=== PATIENT | female | born 1980 | race Asian ===

== ENCOUNTER → 2017-06-13 | Outpatient (CLI) | payer OTHER ==
[~2017-06-13] MED LIST: ACET-1256 PO
[2017-06-13 17:54] LABS: URINE APPEARANCE CLEAR (CLEAR); URINE BILIRUBIN NEG (NEG); URINE COLOR YELLOW; URINE EPITHELIAL CELL AUTO >30 /lpf (0-5); URINE NITRITE NEG (NEG); URINE PH 6.5 (4.5-7.5); URINE SPECIFIC GRAVITY 1.019 (1.000-1.030); UROBILINOGEN NEG (NEG)
[2017-06-13 18:16] LABS: MANUAL MICROSCOPIC REQUIRED? NO; REVIEW REQ? NO
== END | disposition home or self-care (01) ==
LOC: C.LABSPEC 16:55
PROVIDERS: ATTEND Obstetrics & Gynecology
DX: O09.521 Supervision of elderly multigravida, first trimester (principal)

== ENCOUNTER 2017-06-25 01:42 | Emergency (ER) | payer OTHER ==
[~2017-06-25] VITALS: Ht 160 cm; Wt 47.5 kg
[2017-06-25 01:47] VITALS: TEMP 36.9; Ht 160 cm; Wt 47.5 kg
[2017-06-25] MEDS ORDERED: ACET-1256 PO (02:12)
--- NOTE | 2017-06-25 02:12 | EMERGENCY ROOM VISIT NOTE ---
History Report prepared by Jesus Manuel: Kait Ward Under the Supervision of: Dr. Abdifatah Lopez M.D. First contact with patient: 01:53 Chief Complaint: ED VAG BLEEDING Stated Complaint: THREE MONTHS -BLEEDING History of Present Illness The patient is a 36 year old female who presents to the Emergency Room with complaints of an episode of vaginal bleeding starting an hour ago. The patient states that she is 14 weeks . She states that she has been having spotting of bleeding. The patient complains of a fever and a cough lasting for 2 weeks. She denies any bleeding with up until this point, any pain, urinary burning, hematochezia, use of antibiotics, and being around anyone with tuberculosis. She notes she moved to the [facility] 3 months ago. Source of History: patient Onset: an hour ago Position: other (vagina) Symptom Intensity: spotting Quality: other (bleeding) Timing: other (episode) Associated Symptoms: + fevers, + cough, No hematochezia, No urinary symptoms Note: The patient denies any bleeding with up until this point, any pain, use of antibiotics, and being around anyone with tuberculosis. Review of Systems See HPI for pertinent positives & negatives. A total of 10 systems reviewed and were otherwise negative. Past Medical & Surgical Medical Problems: (1) 14 weeks gestation of Family History No pertinent family history Social History Smoking Status: Never Smoker Marital Status: Housing Status: lives with family Current/Historical Medications Scheduled PRN Acetaminophen (Tylenol), 1,000 MG PO Q4 PRN for Pain Allergies Coded Allergies: No Known Allergies (Unverified , 06/25/17) Physical Exam Vital Signs Date Time Temp Pulse Resp B/P (MAP) Pulse Ox O2 Delivery O2 Flow Rate FiO2 06/25/17 04:23 83 16 110/57 95 Room Air 06/25/17 03:27 100 16 121/62 99 Room Air 06/25/17 01:47 36.9 83 20 109/67 98 Room Air Physical Exam GENERAL: Patient is anxious appearing and in minimal distress. HEENT: No acute trauma, normocephalic atraumatic, mucous membranes moist, no nasal congestion, no scleral icterus. NECK: No stridor, no adenopathy, no meningismus, trachea is midline. LUNGS: No dyspnea. Junky productive cough. Crackles bilateral lower lobes. No wheeze, no rhonchi. HEART: Regular rate and rhythm. No murmurs, rubs, gallops appreciated. ABDOMEN: Soft, nontender, bowel sounds positive, no masses appreciated, no peritonitis. BACK: No midline tenderness, no CVA tenderness EXTREMITIES: Normal motion all extremities, no cyanosis, no edema. NEUROLOGIC: Alert and oriented, no acute motor or sensory deficits, no focal weakness, cranial nerves grossly intact. SKIN: No rash, no jaundice, no diaphoresis. Medical Decision & Procedures ER Provider Diagnostic Interpretation: Radiology results and stated below per my review and radiologist interpretation: US OB 2nd Trimester: Single intrauterine . Approximately 14 weeks and 1 day. heart rate = 164 BPM. Posterior placenta location. Transverse lie. There is linear echogenicity posteriorly which could represent non-fusion of the amnion/chorion versus artifact. consider follow-up to ensure resolution. Radiologist: Estuardo Abdalla M.D. Study ready at 03:24 and initial results transmitted at 04:01. Laboratory Results 06/25/17 02:17 Red Blood Count 4.78, Mean Corpuscular Volume 78.7, Mean Corpuscular Hemoglobin 26.6, Mean Corpuscular Hemoglobin Concent 33.8, Mean Platelet Volume 9.7, Neutrophils (%) (Auto) 74.0, Lymphocytes (%) (Auto) 18.8, Monocytes (%) (Auto) 6.0, Eosinophils (%) (Auto) 0.5, Basophils (%) (Auto) 0.3, Neutrophils # (Auto) 8.20, Lymphocytes # (Auto) 2.08, Monocytes # (Auto) 0.66, Eosinophils # (Auto) 0.06, Basophils # (Auto) 0.03 06/25/17 02:17 Test 06/25/17 02:17 White Blood Count 11.07 K/uL (4.8-10.8) Red Blood Count 4.78 M/uL (4.2-5.4) Hemoglobin 12.7 g/dL (12.0-16.0) Hematocrit 37.6 % (37-47) Mean Corpuscular Volume 78.7 fL (80-100) Mean Corpuscular Hemoglobin 26.6 pg (25-34) Mean Corpuscular Hemoglobin Concent 33.8 g/dl (32-36) Platelet Count 317 K/uL (130-400) Mean Platelet Volume 9.7 fL (7.4-10.4) Neutrophils (%) (Auto) 74.0 % Lymphocytes (%) (Auto) 18.8 % Monocytes (%) (Auto) 6.0 % Eosinophils (%) (Auto) 0.5 % Basophils (%) (Auto) 0.3 % Neutrophils # (Auto) 8.20 K/uL (1.4-6.5) Lymphocytes # (Auto) 2.08 K/uL (1.2-3.4) Monocytes # (Auto) 0.66 K/uL (0.11-0.59) Eosinophils # (Auto) 0.06 K/uL (0-0.5) Basophils # (Auto) 0.03 K/uL (0-0.2) RDW Standard Deviation 55.9 fL (36.4-46.3) RDW Coefficient of Variation 19.5 % (11.5-14.5) Immature Granulocyte % (Auto) 0.4 % Immature Granulocyte # (Auto) 0.04 K/uL (0.00-0.02) Anion Gap 6.0 mmol/L (3-11) Est Creatinine Clear Calc Drug Dose 126.8 ml/min Estimated GFR () 148.3 Estimated GFR (Non- 128.0 BUN/Creatinine Ratio 14.3 (10-20) Calcium Level 9.3 mg/dl (8.5-10.1) Human Chorionic Gonadotropin, Quant 350499 mIU/mL Laboratory results as reviewed by me. ED Course 0157: The patient was evaluated in room B7. A complete history and physical exam was performed. 0234: The patient refused a chest x-ray and therefore will only get an ultrasound. 0414: Reevaluated the patient. Discussed results and discharge instructions: She verbalized understanding and agreement. The patient is ready for discharge. Medical Decision Differential: Menstrual Bleeding, Dysfunctional Uterine Bleeding, Infectious, Ectopic , Bleeding Dyscrasia, amongst other pathologies entertained. Very anxious 36 yr old female who is 14 wks arrives following small amount vaginal bleeding/spotting earlier this evening. No pain, no current bleeding, no vaginal discharge nor other symptoms related to this. Notes ongoing cough last 2 weeks and initially said fevers/productive, then states it is not. I discussed my concerns with her recent travel and coming from foreign [place] and that CXR might be indicated though she refuses after initially agreeing. She adamantly denies TB risk factors. She is afebrile, without hypoxia nor tachycardia. WBC consistent with . She declines treatment of cough for fear harm fetus. US with 14 wk IUP with +FHR and posterior placenta with possible fluid behind placenta. She will be seen by OB this morning per patient and will discuss treatment/eval of cough with them as well as further eval for bleeding. A + Blood type. Labs otherwise unremarkable. No urine though denies UTI symptoms per patient. Medication Reconcilliation Current Medication List: was personally reviewed by me Blood Pressure Screening Patient's blood pressure: Normal blood pressure Impression Primary Impression: Vaginal bleeding before 22 weeks gestation Additional Impressions: 14 weeks gestation of Persistent cough Scribe Attestation The scribe's documentation has been prepared under my direction and personally reviewed by me in its entirety. I confirm that the note above accurately reflects all work, treatment, procedures, and medical decision making performed by me. Departure Information Dispostion Home / Self-Care Referrals No Doctor, Assigned (PCP) Forms HOME CARE DOCUMENTATION FORM, IMPORTANT VISIT INFORMATION, WORK / SCHOOL INSTRUCTIONS Patient Instructions Bleeding Early Preg, My [facility] Additional Instructions You should have your cough evaluated further as concern for underlying infection. Discuss treatment with antibiotics with your primary provider. Please follow up with [employer] SUPERINTENDENT as planned in the morning to discuss your vaginal bleeding and Ultrasound Report. Return if heavy bleeding, severe pain, passing out or other concerns. Problem Qualifiers
[2017-06-25 02:28] LABS: BASO % 0.3 %; BASO ABS # 0.03 K/uL (0-0.2); COMPLETE YES; EOS % 0.5 %; HEMATOCRIT 37.6 % (37-47); IG% 0.4 %; LYMPH % 18.8 %; LYMPH ABS # 2.08 K/uL (1.2-3.4); MEAN CELL VOLUME 78.7 fL (80-100); MEAN CORPUSCULAR HEMOGLOBIN 26.6 pg (25-34); MEAN CORPUSCULAR HGB CONC 33.8 g/dl (32-36); MEAN PLATELET VOLUME 9.7 fL (7.4-10.4); PLATELET COUNT 317 K/uL (130-400); RED BLOOD COUNT 4.78 M/uL (4.2-5.4); WHITE BLOOD COUNT 11.07 K/uL (4.8-10.8)
[2017-06-25 02:53] LABS: BUN/CREATININE RATIO 14.3 (10-20); CALCIUM 9.3 mg/dl (8.5-10.1); CREATININE 0.46 mg/dl (0.60-1.20); POTASSIUM 3.8 mmol/L (3.5-5.1)
[2017-06-25 04:23] VITALS: BP 110/57; PULSE 83; O2SAT 95
--- NOTE | 2017-06-25 07:22 | DIAGNOSTIC IMAGING REPORT ---
LIMITED (US) CLINICAL HISTORY: 36 years-old Female presenting with 12-14 wks , light vaginal bleeding. TECHNIQUE: Real-time grayscale and color and spectral Doppler ultrasound imaging of the pelvis was performed using a transabdominal probe for a limited first trimester obstetrical evaluation. COMPARISON: None. FINDINGS: Uterus: Single live intrauterine . Size metrics below: -Biparietal diameter 2.4 cm with estimated gestational age 14 weeks 0 days -Head circumference 8.9 cm with estimated gestational age 14 weeks 0 days Abdominal circumference 7.0 cm with estimated gestational age 13 weeks 4 days -Femur length 1.1 cm with estimated gestational age 13 weeks 2 days Composite gestational age 14 weeks 1 day with estimated date of delivery 12/23/2017. Posterior fundal placental implantation. heart rate 165 beats per minute. Normal amniotic fluid volume. No perigestational fluid to suggest hemorrhage. Right adnexa: Ovary not visualized. Left adnexa: Ovary not visualized. Other: No free fluid. IMPRESSION: Single live intrauterine with composite gestational age 14 weeks 1 day with estimated date of delivery 12/23/2017. No perigestational hemorrhage. Electronically signed by: Deandre George M.D. 06/25/2017 7:20 AM Dictated Date/Time: 06/25/2017 7:15 AM
== END 2017-06-25 04:25 | disposition home or self-care (01) ==
LOC: C.EDB 01:44
DX: O20.8 Other hemorrhage in early pregnancy (principal); Z3A.14 14 weeks gestation of pregnancy; R05 Cough

== ENCOUNTER → 2017-06-26 | Outpatient (CLI) | payer OTHER ==
[2017-06-26 16:28] LABS: BASO % 0.1 %; BASO ABS # 0.01 K/uL (0-0.2); COMPLETE YES; EOS % 0.7 %; HEMATOCRIT 40.9 % (37-47); IG% 0.2 %; LYMPH % 12.4 %; LYMPH ABS # 1.14 K/uL (1.2-3.4); MEAN CELL VOLUME 80.4 fL (80-100); MEAN CORPUSCULAR HEMOGLOBIN 25.9 pg (25-34); MEAN CORPUSCULAR HGB CONC 32.3 g/dl (32-36); MEAN PLATELET VOLUME 10.2 fL (7.4-10.4); NEUT % 81.6 %; PLATELET COUNT 320 K/uL (130-400); RED BLOOD COUNT 5.09 M/uL (4.2-5.4); WHITE BLOOD COUNT 9.22 K/uL (4.8-10.8)
[2017-06-29 00:38] LABS: CHLAMYDIA TRACH RNA*** NOT DETECTED (NOT DETECTED); GC (NEIS GONORRHOEAE)RNA** NOT DETECTED (NOT DETECTED)
== END | disposition home or self-care (01) ==
LOC: C.LAB1850 15:15
PROVIDERS: ATTEND Obstetrics & Gynecology
DX: O09.521 Supervision of elderly multigravida, first trimester (principal)

== ENCOUNTER → 2017-07-10 | Outpatient (CLI) | payer OTHER ==
[2017-07-10 13:13] LABS: GTGD 50 Grams
== END | disposition home or self-care (01) ==
LOC: C.LAB1850 11:16
PROVIDERS: ATTEND Obstetrics & Gynecology
DX: O09.522 Supervision of elderly multigravida, second trimester (principal)

== ENCOUNTER → 2017-08-01 | Outpatient (CLI) | payer OTHER ==
[2017-08-01 18:39] LABS: URINE APPEARANCE CLOUDY (CLEAR); URINE BILIRUBIN NEG (NEG); URINE COLOR YELLOW; URINE NITRITE NEG (NEG); URINE SPECIFIC GRAVITY 1.025 (1.000-1.030); UROBILINOGEN NEG (NEG)
[2017-08-01 19:07] LABS: MANUAL MICROSCOPIC REQUIRED? YES; REVIEW REQ? NO
[2017-08-01 19:12] LABS: URINE BACTERIA 2+ (NEG); URINE RBC >30 /hpf (0-4); URINE WBC >30 /hpf (0-5)
== END | disposition home or self-care (01) ==
LOC: C.LABSPEC 17:50
PROVIDERS: ATTEND Obstetrics & Gynecology
DX: O09.522 Supervision of elderly multigravida, second trimester (principal)

== ENCOUNTER 2017-08-17 15:48 | Outpatient (CLI) | payer OTHER | END 2017-08-17 18:33 | disposition home or self-care (01) | LOC: C.LD 15:48 → C.OPB 15:48 | PROVIDERS: ATTEND Obstetrics & Gynecology | DX: O46.92 Antepartum hemorrhage, unspecified, second trimester (principal); Z3A.21 21 weeks gestation of pregnancy ==

== ENCOUNTER 2017-08-30 00:28 | Inpatient (IN) | payer OTHER ==
[~2017-08-30] VITALS: Ht 160 cm; Wt 49.5 kg
[2017-08-30 01:20] LABS: BASO % 0.1 %; BASO ABS # 0.01 K/uL (0-0.2); COMPLETE YES; EOS % 0.9 %; HEMATOCRIT 37.5 % (37-47); IG% 0.8 %; LYMPH % 16.9 %; LYMPH ABS # 1.71 K/uL (1.2-3.4); MEAN CELL VOLUME 85.2 fL (80-100); MEAN CORPUSCULAR HEMOGLOBIN 28.4 pg (25-34); MEAN CORPUSCULAR HGB CONC 33.3 g/dl (32-36); MEAN PLATELET VOLUME 10.2 fL (7.4-10.4); MONO % 5.5 %; NEUT % 75.8 %; PLATELET COUNT 253 K/uL (130-400); WHITE BLOOD COUNT 10.12 K/uL (4.8-10.8)
[2017-08-30] MEDS ORDERED: BETAMETH SOD PHOS/ACETATE IA 6 MG/ML ONE (02:44)
[2017-08-30] MEDS ORDERED: MAGNESIUM SULFATE 4GM / WTR 4 GM BAG IV ONE (03:15)
[2017-08-30] MEDS ORDERED: MAGNESIUM SULFATE 40GM / WTR 1000 ML IV SCH (03:15)
[2017-08-30] MEDS ORDERED: BETAMETH SOD PHOS/ACETATE IA 6 MG/ML IM SCH (03:15)
[2017-08-30] MEDS ORDERED: AMPICILLIN IV 2,000 MG in SODIUM CHLOR 0.9% AD-VAN 100ML 100 ML IV SCH (03:15)
[2017-08-30] MEDS ORDERED: EpHEDrine SULFATE INJ 50 MG/ML AMP ONE (03:52)
[2017-08-30] MEDS ORDERED: BUPIVACAINE 0.25% 30 ML VIAL ONE (03:52)
[2017-08-30] MEDS ORDERED: FENTANYL CITRATE INJ 50 MCG/1 ML 2 ML VIAL ONE (03:53)
[2017-08-30] MEDS ORDERED: FENTANYL 2MCG/ML ROPIV 1.25MG/ML 100ML BAG EPI ONE (03:53)
[2017-08-30 04:40] VITALS: Ht 160 cm; Wt 49.5 kg
[2017-08-30] MEDS ORDERED: PRENTAB26 PO (04:40)
[2017-08-30] MEDS: LACTATED RINGER'S 1000ML 1,000 ML IV SCH ×2 (04:43→11:36)
[2017-08-30] MEDS ORDERED: LACTATED RINGER'S 1000ML 500 ML IV PRN ×2 (04:50→05:22)
[2017-08-30] MEDS ORDERED: NALOXONE HCL INJ 1 MG in SODIUM CHLORIDE 0.9% 1000ML 1,000 ML IV PRN (04:50)
[2017-08-30] MEDS ORDERED: NALOXONE HCL INJ 0.4 MG/1 ML VIAL/CARP IV PRN (05:00)
[2017-08-30] MEDS ORDERED: EpHEDrine SULFATE INJ 50 MG/ML AMP IV PRN (05:00)
[2017-08-30] MEDS ORDERED: FENTANYL 2MCG/ML ROPIV 1.25MG/ML 100ML BAG EPI PRN (05:00)
[2017-08-30] MEDS ORDERED: PROMETHAZINE HCL INJ 6.25 MG in SODIUM CHLORIDE 0.9% 50ML 50 ML IV PRN (05:00)
[2017-08-30] MEDS ORDERED: ONDANSETRON INJ 2 MG/ML 2 ML VIAL IV PRN (05:00)
[2017-08-30] MEDS ORDERED: NALBUPHINE HCL INJ 10 MG/ML AMP IV PRN (05:00)
[2017-08-30] MEDS ORDERED: DiphenhydrAMINE HCL 50 MG/ML VIAL IV PRN (05:00)
[2017-08-30] MEDS ORDERED: OXYTOCIN 30 UNITS/500ML NSS IV PRN ×2 (05:30→14:30)
[2017-08-30] MEDS ORDERED: ACETAMINOPHEN 325 MG TAB PO PRN (14:30)
[2017-08-30] MEDS ORDERED: ACETAMINOPHEN/CODEINE 300/30MG TAB PO PRN ×2 (14:30)
[2017-08-30] MEDS ORDERED: BENZOCAINE 20% AER SPR 82.5 GM CAN EXT PRN (14:30)
[2017-08-30] MEDS ORDERED: OXYCODONE/ACETAMINOPHEN 5-325 TAB PO PRN (14:30)
[2017-08-30] MEDS ORDERED: HYDROCORTISONE ACETATE 25 MG SUPP PR PRN (14:30)
[2017-08-30] MEDS ORDERED: SUPERCREAM 0.870 % 15GM JAR EXT PRN (14:30)
[2017-08-30] MEDS ORDERED: LANOLIN OINT EXT PRN ×2 (14:30)
[2017-08-30] MEDS ORDERED: IBUPROFEN 600 MG TAB PO PRN (14:30)
--- NOTE | 2017-08-30 14:57 | DELIVERY SUMMARY ---
DATE OF OPERATION: 08/30/2017 DATE OF DELIVERY: 08/30/2017 PREOPERATIVE DIAGNOSIS: 1. Premature rupture of membranes at approximately 19 weeks. 2. Labor at 23 weeks. POSTOPERATIVE DIAGNOSIS: Same. PROCEDURE: 1. Epidural anesthesia. 2. Pitocin augmentation. 3. Normal spontaneous vaginal delivery of breech 23-week baby. 4. Manual extraction of placenta. SURGEON: Dr. Sylvester. ANESTHESIA: Epidural. ESTIMATED BLOOD LOSS: 300 mL. PROCEDURE: The patient presented to labor and delivery in early labor. She did not appear to be grossly infected. For entire conversation of admission history please see her admission history and QS. Once the decision was made to allow labor to progress she got an epidural anesthetic. Her contractions then petered out. She was given Pitocin augmentation. She progressed to spontaneously delivering the baby into the vagina in right sacrum anterior presentation. We prepared for delivery, pediatrics was in attendance. The patient pushed with excellent to deliver the breech and then with patient effort she delivered the rest of the body up to the shoulders. The legs were reduced. The right arm and left arm were reduced. Then using a Jlxihyjva-Symabkk-Clbl maneuver and with gentle upward lifting the fetus head was delivered. The fetus did attempt some movement while I was clamping and cutting the cord. The infant was handed off to Dr. Partida the school laboratory technician. The patient was given Cytotec rectally to help the uterus expel the placenta. We did wait and were patient and saw the cord lengthening and I thought I had palpated the placenta in the lower uterine segment. Unfortunately with maternal pushing and just very gentle cord traction the cord avulsed. Therefore manual extraction of the placenta was performed. The operators hand was placed into the uterus x3. It did feel like there was no further placenta tissue. A banjo curette was gently used to curettage the uterus and again no significant placenta tissue was obtained. The patient was given 400 mcg more of Cytotec and dilute Pitocin and the uterus firmed up and was quite firm with minimal bleeding. The cervix, sulci, rectum, perineum and labia were all examined and found to be intact, no repair necessary. The patient tolerated the procedure very well. Because of manual extraction of the placenta IV Ancef was started for prophylaxis. Please see pediatrics notes for evaluation of the baby. I attest to the content of the Intraoperative Record and any orders documented therein. Any exception s are noted below.
--- NOTE | 2017-08-30 15:14 | Anesthesia Procedure Note ---
Anesthesia Epidural Removal Nt Date & Time Aug 30, 2017 at 15:14 Notes Mental Status: alert / awake / arousable, participated in evaluation Nausea / Vomiting: adequately controlled Pain: adequately controlled Airway Patency, RR, SpO2: stable & adequate BP & HR: stable & adequate Hydration State: stable & adequate Neuraxial Anesthesia: was administered, sensory block is resolving Anesthetic Complications: no major complications apparent, pt satisfied with anesthetic care Epidural: removed without complications, with tip intact
[2017-08-30] MEDS ORDERED: MISOPROSTOL 200 MCG TAB PR ONE (15:30)
[2017-08-30] MEDS: CEFAZOLIN IV 2,000 MG in SYRINGE 0 ML IV SCH ×2 (15:34→23:00)
[2017-08-30 19:30] VITALS: BP 100/58; PULSE 85; TEMP 36.7
[2017-08-30] MEDS ORDERED: DOCUSATE SODIUM 100 MG CAP PO SCH (20:00)
[2017-08-30] MEDS ORDERED: MISOPROSTOL 200 MCG TAB ONE (20:42)
[2017-08-30 23:14] VITALS: BP 110/60; PULSE 81; TEMP 36.5
[2017-08-31 03:30] VITALS: BP 102/55; PULSE 71; TEMP 36.8
[2017-08-31 06:11] LABS: HEMATOCRIT 32.1 % (37-47); MEAN CELL VOLUME 85.1 fL (80-100); MEAN CORPUSCULAR HEMOGLOBIN 28.4 pg (25-34); MEAN CORPUSCULAR HGB CONC 33.3 g/dl (32-36); MEAN PLATELET VOLUME 9.9 fL (7.4-10.4); PLATELET COUNT 221 K/uL (130-400); RED BLOOD COUNT 3.77 M/uL (4.2-5.4); WHITE BLOOD COUNT 14.84 K/uL (4.8-10.8)
--- NOTE | 2017-08-31 06:42 | OB/GYN Progress Note ---
COMPUTER DRAFTER Progress Note Date of Service Aug 31, 2017. Subjective conversation w/ patient, physical exam, chart review, lab review Ambulation: ambulating normally Voiding: no voiding problems Diet Tolerance: Regular Diet Lochia: Small Pain: 0/10 Review of Systems Constitutional: No fever, No chills Respiratory: No shortness of breath Cardiac: No chest pain Abdomen: No nausea, No vomiting Female : No dysuria Objective Vital Signs Date Time Temp Pulse Resp B/P (MAP) Pulse Ox O2 Delivery O2 Flow Rate FiO2 08/31/17 03:30 36.8 71 16 102/55 08/31/17 03:30 Room Air 08/30/17 23:17 Room Air 08/30/17 23:14 36.5 81 16 110/60 08/30/17 19:30 Room Air 08/30/17 19:30 36.7 85 18 100/58 Physical Exam General Appearance: WELL-APPEARING Respiratory/Chest: lungs clear, normal breath sounds Cardiovascular: regular rate, rhythm Abdomen: normal bowel sounds, non tender, soft Fundus: Firm, Relation to Umbilicus (2 FB below) Extremities: non-tender, no pedal edema Laboratory Results Last 24 Hours Test 08/31/17 05:20 White Blood Count 14.84 K/uL Red Blood Count 3.77 M/uL Hemoglobin 10.7 g/dL Hematocrit 32.1 % Mean Corpuscular Volume 85.1 fL Mean Corpuscular Hemoglobin 28.4 pg Mean Corpuscular Hemoglobin Concent 33.3 g/dl RDW Standard Deviation 46.9 fL RDW Coefficient of Variation 15.1 % Platelet Count 221 K/uL Mean Platelet Volume 9.9 fL Assessment and Plan Post- Day Number: 1 Continue Routine Care: A/P: This is a 36 y/o female, , s/p [normal vaginal delivery] day 1. She is ambulating and clinically stable. Plan: - Vitals signs are reviewed and WNL (Tmax 36.8) - Last Hgb is 12.5. This AM is pending - Blood type A+, GBS not done, Rubella Immune - Routine care - Encourage ambulation, monitor and control pain with medication as needed, continue with regular diet as tolerated and monitor lochia - Stool softeners and sitz bath recommended - Encourage breast feeding and educate about breast feeding Resident Physician Supervision Note: I was present with Dr. Soto during the history and exam. I discussed the case with the resident and agree with the findings and plan as documented in the note. Any exceptions or clarifications are listed here: [None] Documented By: Kiran Sloan Resident Involvement: Resident Care Provided Care Provided: OB Delivery
--- NOTE | 2017-08-31 07:02 | Discharge Instructions ---
Discharge Instructions Date of Service Aug 31, 2017. Admission Reason for Admission: Check Labor Discharge Discharge Diagnosis / Problem: after vaginal delivery Discharge Goals Goal(s): Routine recovery after delivery Medications Continue Dispensed Medications: supercream, dermaplast, tucks, lansinoh Activity Recommendations Activity Limitations: per Instructions/Follow-up section . Instructions / Follow-Up Instructions / Follow-Up ACTIVITY RECOMMENDATIONS: * Gradual return to full activity over the next 2-3 weeks. * No lifting - nothing heavier than baby over the next 2-3 weeks. * Do not engage in vigorous exercise, sexual activity or sports until cleared by your physician. * Do not drive or operate any motorized equipment until cleared by your physician. * You may shower/bathe daily. MEDICATIONS: For discomfort or pain, you may use Acetaminophen (Tylenol), Ibuprofen (Advil), or Naproxen (Aleve) following the package directions. For constipation you may use Colace following the package directions. BREAST CARE: If you are not breast feeding: * Wear a supportive bra 24 hours a day for one to two weeks. * Avoid stimulating your breasts and nipples as much as possible during the first few weeks after delivery. * When taking a shower, have the warm water hit your back, not breasts. * When your breasts feel full, apply ice packs. Usually three to four times a day helps ease the discomfort. * Take a mild pain medication (Tylenol / Motrin) when you are uncomfortable. EPISIOTOMY CARE: After delivery, if you have an episiotomy (stitches), the following steps will ease discomfort and aid healing. * For the first 24 hours after delivery, place ice packs next to your episiotomy to help reduce swelling. * After the first 24 hour-period, sitz baths, either portable or in the tub, are suggested. A shower with a shower arm sprayed over the episiotomy may be comforting. * Evelyn care should be done after each voiding and bowel movement. Squirt warm water from a plastic bottle over the perineum (region of the body between the anus and urinary opening) and pat dry. * Use Dermoplast to ease discomfort. Shake container. [place] directly over the episiotomy. Place a Tucks on a clean sanitary pad next to your episiotomy. SPECIAL CARE INSTRUCTIONS: When you are discharged from the hospital, it is important for you to follow the instructions listed below: * During the first week at home, you should be able to care for yourself and your baby. In addition, the usual light household activities are encouraged. * Limit your activities to the way you feel. Do not try to clean the house or move furniture. Be sensible. * If you actively engage in sports and have done so up until the time of your delivery, you may resume these activities as soon as you feel able. This may take up to one month or even longer. Use good judgment. * Continue to take your vitamins for at least six weeks after the of your baby. * Your diet need not be limited unless you were on a special diet before your delivery. Breast-feeding mothers need around 2500 calories per day and at least 64-80 ounces of fluid per day (8 to 10 glasses). * You should eat foods from the four major food groups. Crash diets or fad diets are to be avoided. Eating lean meats, fresh fruits and vegetables, low-fat dairy products, high fiber foods and a regular exercise program, will help you get back to your pre- weight without putting your health at risk. * Constipation is sometimes a problem after delivery. Take a mild laxative as needed. If breast feeding, Milk of Magnesia is acceptable to use. You may use a suppository or Fleets enema if no episiotomy. * A daily shower or tub bath is suggested. Be sure to thoroughly and gently dry the perineum. * A bloody vaginal discharge will usually continue until around four weeks post . A small amount of bleeding may continue for as long as six weeks. Vaginal discharge changes from the bright red bleeding after delivery to pink then brownish and finally yellowish-pink before becoming white and disappearing. * Bleeding may increase with activity. Your first period may come in 4-8 weeks. If you are breast feeding, your period may be delayed even longer. * [place] (sex) can begin whenever both you and your partner feel comfortable and do not have any form of genital infection. It is recommended that you wait at least six weeks for internal and external healing to occur. If you have questions, please talk to your health care practitioner. A condom should be used to prevent infection and . * Foreplay, gentle intercourse and lubrication is very important the first several times to prevent pain. A water-based lubricant such as K-Y jelly or Astroglide may be used. * If you have RH negative blood and your baby is RH positive, you will receive RHOGAM by injection prior to discharge. The nurse will give you a card to keep with you that has the date and place that you received RHOGAM after delivery. * During your care, you had a Rubella screen done to check for the presence of rubella antibodies in your blood. If your test was negative, you will receive a Rubella vaccine prior to discharge. This vaccine may cause a fever, soreness at the injection site and flu-like symptoms. If these symptoms persist, notify your health care practitioner. is not advised for one month after a Rubella vaccine. * Verbalizes understanding of car seat law as reviewed with patient nursing. * Car Seat hand-out given and reviewed with patient by nursing. * Shaken baby information reviewed with patient by nursing. Call you doctor if: * Heavy bleeding (saturating several pads an hour) or passing clots the size of your fist. * A fever >101 degrees F (38.3 degrees C) on two occasions four hours apart and /or chills. * Unusual pain in the pelvic or vaginal areas. * "Baby Blues" lasting longer than two weeks. If you have any questions or concerns, call your health care practitioner at . FOLLOW UP VISIT: * Please call the office at to schedule a 6 week examination. It is important you keep this appointment. It is important for you to make arrangements for either yearly or twice yearly check-ups thereafter. Current Hospital Diet Patient's current hospital diet: Regular OB Diet Discharge Diet Recommended Diet: Regular Diet Pending Studies Studies pending at discharge: no Medical Emergencies . Who to Call and When: Medical Emergencies: If at any time you feel your situation is an emergency, please call 911 immediately. . Non-Emergent Contact Non-Emergency issues call your: Radio Performer . . "Provider Documentation" section prepared by Steve Soto. . VTE Core Measure Inpt VTE Proph given/why not?: SCD's
[2017-08-31] MEDS: CEFAZOLIN IV 2,000 MG in SYRINGE 0 ML IV SCH (07:32)
[2017-08-31] MEDS ORDERED: CEFAZOLIN IV 2,000 MG in SYRINGE 0 ML IV STA (15:15)
== END 2017-08-31 13:50 | disposition home or self-care (01) | DRG 775 ==
LOC: C.OPB 00:28 → C.LD 00:28 → C.OPB 14:16 → C.LD 14:16
PROVIDERS: ADMIT Obstetrics & Gynecology; ATTEND Obstetrics & Gynecology
PROC: 10E0XZZ Delivery of Products of Conception, External Approach (ICD-10-PCS; principal; 2017-08-30)
DX: O42.112 Preterm premature rupture of membranes, onset of labor more than 24 hours following rupture, second trimester (principal); Z3A.23 23 weeks gestation of pregnancy

== ENCOUNTER → 2017-09-13 | Outpatient (CLI) | payer OTHER ==
[~2017-09-13] MED LIST changes: -ACET-1256 PO; +PRENTAB26 PO
--- NOTE | 2017-09-13 18:35 | DIAGNOSTIC IMAGING REPORT ---
TWO VIEW CHEST CLINICAL HISTORY: Chronic cough. FINDINGS: PA and lateral chest radiographs are obtained. No prior studies are available for comparison at the time of dictation. The examination is degraded by apical lordotic positioning. The cardiomediastinal silhouette is unremarkable. Scattered calcified granulomas are observed. The lungs and pleural spaces are otherwise clear. There is no pneumothorax. The bony thorax appears intact. IMPRESSION: No active disease in the chest. Electronically signed by: Will Nowak M.D. 09/13/2017 6:34 PM Dictated Date/Time: 09/13/2017 6:33 PM
== END | disposition home or self-care (01) ==
LOC: C.RAD 18:08
PROVIDERS: ATTEND Student in an Organized Health Care Education/Training Program
DX: R05 Cough (principal)

== ENCOUNTER → 2017-09-24 | Outpatient (CLI) | payer OTHER | END | disposition home or self-care (01) | LOC: C.PAPS 14:38 | PROVIDERS: ATTEND Obstetrics & Gynecology | DX: Z12.4 Encounter for screening for malignant neoplasm of cervix (principal) ==